=== PATIENT | male | born 1975 | race Caucasian/White ===

== ENCOUNTER 2023-04-11 12:35 | Day surgery (SDC) | payer BC, SELFPAY ==
--- NOTE | 2023-04-11 | PATH_ITS ---
[facility] Accession Number: [id number] No. of containers..08 Tissue . 01 Material submitted: . PART A: duodenum - DUODENUM PART B: stomach - ANTRUM PART C: gastrointestinal site - GASTRIC BODY PART D: ileum - TERMINAL ILEUM PART E: colon - RIGHT COLON PART F: colon - TRANSVERSE COLON PART G: colon - LEFT COLON PART H: rectum - RECTUM . 01 Diagnosis: A. Duodenum, Biopsy: Duodenal mucosa with no diagnostic abnormality. Negative for active inflammation, features of sprue, dysplasia, or malignancy. . B. Stomach, Antrum, Biopsy: Antral and body-type mucosa with mild chronic gastritis. Negative for Helicobacter by immunohistochemistry. Negative for intestinal metaplasia. Negative for dysplasia and malignancy. . C. Stomach, Body, Biopsy: Acute erosive gastritis. Negative for Helicobacter by immunohistochemistry. Negative for intestinal metaplasia. Negative for dysplasia and malignancy. . D. Terminal Ileum, Biopsy: Small bowel mucosa with no diagnostic abnormality. Negative for active inflammation, dysplasia, and malignancy. . E-H. Right Colon, Transverse Colon, Left Colon, Rectum, Biopsies: Colonic mucosa with no diagnostic abnormality. Negative for active, chronic, and microscopic colitis. Negative for dysplasia and malignancy. . [facility] 04/19/2023 1332 Local . 01 Electronically signed: . Lisa Bass MD, Pathologist NPI- [id number] . 01 Gross description: . Part A: DUODENUM: Received in formalin are 2 fragment(s) of perez, soft tissue measuring 0.1 x 0.1 x 0.1 cm to 0.3 x 0.2 x 0.2 cm submitted entirely in 1 cassette(s) Part B: ANTRUM: Received in formalin are 3 fragment(s) of perez, soft tissue measuring 0.2 x 0.2 x 0.2 cm to 0.3 x 0.2 x 0.2 cm submitted entirely in 1 cassette(s) Part C: GASTRIC BODY: Received in formalin are 3 fragment(s) of perez, soft tissue measuring 0.1 x 0.1 x 0.1 cm to 0.3 x 0.2 x 0.2 cm submitted entirely in 1 cassette(s) Part D: TERMINAL ILEUM: Received in formalin are 3 fragment(s) of perez, soft tissue measuring 0.1 x 0.1 x 0.1 cm to 0.2 x 0.2 x 0.2 cm submitted entirely in 1 cassette(s) Part E: RIGHT COLON : Received in formalin are 2 fragment(s) of perez, soft tissue measuring 0.2 x 0.2 x 0.2 cm to 0.3 x 0.3 x 0.2 cm submitted entirely in 1 cassette(s) Part F: TRANSVERSE COLON : Received in formalin is 1 fragment(s) of perez, soft tissue measuring 0.3 x 0.2 x 0.2 cm submitted entirely in 1 cassette(s) Part G: LEFT COLON: Received in formalin are 2 fragment(s) of perez, soft tissue measuring 0.2 x 0.2 x 0.2 cm to 0.3 x 0.2 x 0.2 cm submitted entirely in 1 cassette(s) Part H: RECTUM: Received in formalin are 2 fragment(s) of perez, soft tissue measuring 0.1 x 0.1 x 0.1 cm to 0.3 x 0.2 x 0.2 cm submitted entirely in 1 cassette(s) /JAEL 04/16/2023 2014 Local . 01 Microscopic: . B. An immunohistochemical stain was performed to evaluate for Helicobacter organisms and is negative. The control stain showed appropriate reactivity. . C. An immunohistochemical stain was performed to evaluate for Helicobacter organisms and is negative. The control stain showed appropriate reactivity. . * This test was developed and its performance characteristics determined by [employer]. It has not been cleared or approved by the [place]. Food and Drug Administration. The FDA has determined that such clearance or approval is not necessary. This test is used for clinical purposes. It should not be regarded as investigational or for research. . 01 Pathologist provided ICD-10: K29.50 . 01 CPT . 428134, 364160, 816805, 697078, 204455, 802046, 741615, 616468, [id number] Specimen Comment: A courtesy copy of this report has been sent to [phone] Performed at: 01 [facility] include 234 beds at the [facility] [address] [place] [address], [place], [place] [id number] MD Fortino Munoz MD Phone: [phone]
[2023-04-11 13:17] VITALS: BP 135/87; PULSE 86; RESP 17; TEMP 36.6; O2SAT 99; BMI 24.4
[2023-04-11] MEDS: LACTATED RINGERS 1,000 ML 42 ML IV (13:24)
--- NOTE | 2023-04-11 14:54 | PM.PREOP ---
Pre-operative Note COVID-19 COVID-19 status: Not tested Interval Note History & Physical reviewed/Exam performed by Physician: Yes Changes to H&P: No ASA Class (for procedural sedation): II
--- NOTE | 2023-04-11 15:25 | PM.OP.EC ---
Operative Date/Time/Diagnoses Date of procedure: 04/11/23 Time of procedure: 15:26 Pre-op diagnosis: Diarrhea and rectal bleeding Post-op diagnosis: same Procedure & Clinicians Study performed: EGD and colonoscopy Same procedure as scheduled: Yes Surgeon: Yayo Arroyo Procedure Notes Procedure in detail: Surgeon: Yayo Arroyo MD Anesthesia: Charlie Thomson CRNA Procedure in detail: A timeout was performed. A bite blocked was placed and monitors were attached to the patient. The patient was positioned in a left lateral decubitus position. Sedation was administered. Once the patient was sedated the endoscope was inserted through the bite block and passed through the esophagus and stomach and into the duodenum. No abnormalities were seen in the duodenum. Random biopsies were taken from the duodenum. The duodenal bulb also appeared normal. We then withdrew the scope into the stomach. There were multiple ulcerations in the body of the stomach with flecks of old blood in the stomach. There was also antritis. We took random biopsies from the antrum as well as the body of the stomach near the ulcers. The endoscope was retroflexed and no other abnormalities were seen. The endoscope was straightned and withdrawn into the esophagus. No abnormalities were seen in the esophagus. Findings: Antritis and multiple ulcerations in the body of the stomach Next we repositioned the patient for a colonoscopy. A digital rectal exam was performed and was normal. The colonoscope was inserted and advanced to the cecum. The appendiceal orifice was identified and photographed. The terminal ileum was intubated and random biopsies were taken throughout the terminal ileal mucosa. The scope was slowly withdrawn over greater than 6 minutes. Abnormalities were seen. Random biopsies were taken throughout the colon and rectum. The scope was retroflexed in the rectum and no other abnormalities were seen. Findings: Normal colon and terminal ileum EBL: 10 mL Scope withdrawal time: 8 minutes Sedation minutes: 20 minutes Post-procedure Disposition: PACU
[2023-04-11 15:28] VITALS: BP 100/69; PULSE 72; RESP 12; TEMP 36.4; O2SAT 98
[2023-04-11 15:33] VITALS: BP 102/67; PULSE 69; RESP 12; O2SAT 98
[2023-04-11 15:38] VITALS: BP 115/86; PULSE 76; RESP 14; O2SAT 98
[2023-04-11 15:43] VITALS: BP 112/82; PULSE 73; RESP 16; O2SAT 99
[2023-04-11 15:57] VITALS: BP 117/82; PULSE 82; RESP 14; TEMP 36.2; O2SAT 97
== END 2023-04-11 16:00 | disposition home or self-care (01) ==
PROVIDERS: PCP Nurse Practitioner; Referring Provider Surgery; Visit Provider Surgery
PROC: 0DJD8ZZ Inspection of Lower Intestinal Tract, Via Natural or Artificial Opening Endoscopic (ICD-10-PCS; CPT 45378; principal; 2023-04-11 13:45)
PROC: 0DJ08ZZ Inspection of Upper Intestinal Tract, Via Natural or Artificial Opening Endoscopic (ICD-10-PCS; CPT 43235; 2023-04-11 13:45)
DX: K62.5 Hemorrhage of anus and rectum (principal); R19.7 Diarrhea, unspecified; K29.00 Acute gastritis without bleeding
CPT/HCPCS: 45380; 43239; J2704